=== PATIENT | female | born 1965 | race Caucasian/White ===

== ENCOUNTER → 2016-05-22 | Outpatient (CLI) | payer OTHER ==
[~2016-05-22] MED LIST: CEROVITE ADVANC1 TAB PO; CYMBALTA60 MG PO; FLEXERIL10 MG PO; FLONASE16 GM NASBOTH; GLUCOPHAGE500 MG PO; HYDROCHLOROTH12.5 M1 PO; LIORESAL10 MG PO; LIPITOR20 MG PO; NEURONTIN300 MG PO; PRINIVIL20 MG PO; REGLAN10 MG PO; SYNTHROID100 MCG PO; TRICOR145 MG PO; VITAMIN D1000 UNI1 PO; XANAX0.25 MG PO; [UNRECOGNIZED DRUG - SUPPLY] TOP
== END | disposition short-term general hospital (02) ==
LOC: CLENT 10:08
DX: J01.90 Acute sinusitis, unspecified (principal)

== ENCOUNTER 2016-09-01 10:38 | Emergency (ER) | payer OTHER ==
[~2016-09-01] VITALS: Ht 162.6 cm; Wt 105.7 kg
[2016-09-01] MEDS ORDERED: NEURONTIN300 MG PO (10:57)
[2016-09-01] MEDS ORDERED: GLUCOPHAGE500 MG PO (10:58)
[2016-09-01] MEDS ORDERED: PRINIVIL20 MG PO (10:58)
[2016-09-01] MEDS ORDERED: SYNTHROID100 MCG PO (11:05)
[2016-09-01] MEDS ORDERED: HYDROCHLOROTH12.5 M1 PO (11:05)
[2016-09-01] MEDS ORDERED: LIPITOR20 MG PO (11:07)
[2016-09-01] MEDS ORDERED: CYMBALTA60 MG PO (11:07)
[2016-09-01] MEDS ORDERED: FLEXERIL10 MG PO (11:09)
[2016-09-01] MEDS ORDERED: CEROVITE ADVANC1 TAB PO (11:09)
[2016-09-01] MEDS ORDERED: TRICOR145 MG PO (11:09)
[2016-09-01] MEDS ORDERED: XANAX0.25 MG PO (11:09)
[2016-09-01] MEDS ORDERED: REGLAN10 MG PO (11:10)
[2016-09-01] MEDS ORDERED: FLONASE16 GM NASBOTH (11:11)
[2016-09-01] MEDS ORDERED: [UNRECOGNIZED DRUG - SUPPLY] TOP (11:12)
[2016-09-01] MEDS ORDERED: LIORESAL10 MG PO (11:17)
[2016-09-01] MEDS ORDERED: VITAMIN D1000 UNI1 PO (11:20)
== END 2016-09-01 14:40 | disposition short-term general hospital (02) ==
LOC: ER 10:38 → RAD 10:39 → ER 14:40
DX: S39.012A Strain of muscle, fascia and tendon of lower back, initial encounter (principal); E66.9 Obesity, unspecified; G47.419 Narcolepsy without cataplexy; F31.9 Bipolar disorder, unspecified; G43.909 Migraine, unspecified, not intractable, without status migrainosus; E03.9 Hypothyroidism, unspecified; I10 Essential (primary) hypertension; E55.9 Vitamin D deficiency, unspecified; X58.XXXA Exposure to other specified factors, initial encounter; Z79.899 Other long term (current) drug therapy
CPT/HCPCS: J1885; J3010; J8499

== ENCOUNTER → 2016-11-26 | Outpatient (CLI) | payer OTHER | END | disposition short-term general hospital (02) | LOC: CLNEUR 13:06 | DX: M79.605 Pain in left leg (principal); M25.552 Pain in left hip; M79.1 Myalgia ==